=== PATIENT | female | born 1975 | race Caucasian/White ===

== ENCOUNTER 2023-02-20 22:13 | Observation (INO) | payer OTHER, SELFPAY ==
[2023-02-20] VITALS (8 sets, daily range): BP systolic 132–144; BP diastolic 74–86; PULSE 76–85; RESP 13–20; TEMP 36.4–36.6; O2SAT 95–99
--- NOTE | ~2023-02-20 | XR_ITS ---
Clinical Indication: Chest pain PA and lateral views of the chest: Comparison: None Findings: The lungs are clear, without evidence of focal consolidation or pleural effusion. Cardiome diastinal silhouette is within normal limits. Small hiatal hernia present. Osseous structures are int act. Impression: Clear lungs. Small hiatal hernia. Reviewed, dictated and finalized at [facility]. Impression: Clear lungs. Small hiatal hernia.
--- NOTE | ~2023-02-20 | CT_ITS ---
Clinical Indication: Chest pain, possible food bolus CT Scan of the Chest with Contrast: Technique: Contiguous sections were acquired throughout the chest after intravenous administration of 100 cc of Omnipaque 350. Dose reduction technique was used on this scan by utilizing automated expos ure control and iterative reconstruction technique. The dose-length product (DLP) was 305.56 mGy-cm. Findings: There is no evidence of any significant mediastinal, hilar or axillary lymphadenopathy. No large cent ral pulmonary embolus seen. There is no evidence of aortic dissection or aneurysm. There is mild dila tation of the upper thoracic esophagus, with suggestion of possible impacted food bolus at the GE merrill ction region. There is no evidence of pleural or pericardial effusion. The lungs are clear. No pulmonary nodules or infiltrates are noted. Images through the upper abdomen reveal no abnormalities. Impression: Probable ingested food bolus at the GE junction with associated mild dilatation of the upper esophagu s. Consider endoscopy and/or esophagram for further evaluation. No other significant findings. Reviewed, dictated and finalized at location . Impression: Probable ingested food bolus at the GE junction with associated mild dilatation of the upper esophagus. Consider endoscopy and/or esophagram for further evalu ation. No other significant findings.
--- NOTE | 2023-02-20 22:14 | ECG_ITS ---
Measurements Intervals [place] Rate: 79 P: -11 TX: 142 QRS: 32 QRSD: 77 T: 37 QT: 352 QTc: 405 Interpretive Statements SINUS RHYTHM LOW QRS VOLTAGE IN PRECORDIAL LEADS BASELINE ARTIFACT- I, III, AVL BORDERLINE ECG NO PREVIOUS ECG AVAILABLE FOR COMPARISON Electronically Signed On 02-21-2023 6:37:17 CDT by Juan Ahuja D.O.
--- NOTE | 2023-02-20 23:00 | ED.CHESTPAIN ---
HPI - Chest Pain General Chief Complaint: Chest Pain <ANUPAM Marino Last Filed: 02/21/23 02:59> Stated Complaint: heartburn <ANUPAM Marino Last Filed: 02/21/23 02:59> Time Seen by Provider: 02/20/23 22:43 <ANUPAM Marino Last Filed: 02/21/23 02:59> History of Present Illness HPI narrative: 47-year-old female with a history of asthma reports for evaluation of substernal chest pain that started at 1300 after she was eating pork steak. Patient states while eating for steak, she began having a burning sensation in her chest extending from her neck down to her xiphoid process. States the pain radiates to her upper mid back. She reports taking Rolaids without improvement. She reports vomiting approximately 20 times since the onset of symptoms without relief. Patient is also reporting shortness of breath, however she states this is her baseline secondary to asthma. She denies hematemesis, coffee-ground emesis, abdominal pain, fever, diarrhea, focal numbness or weakness, headache or vision changes. <ANUPAM Marino Last Filed: 02/21/23 02:59> Related Data Home Medications: Home Medications Medication Instructions Recorded Confirmed albuterol sulfate 90 mcg/actuation 2 puff inhalation Q6H PRN 02/20/23 02/21/23 aerosol inhaler Shortness Of Breath <ANUPAM Marino Last Filed: 02/21/23 02:59> Allergies/Adverse Reactions: Allergies Allergy/AdvReac Type Severity Reaction Status Date / Time No Known Allergies Allergy Verified 02/20/23 22:13 <ANUPAM Marino Last Filed: 02/21/23 02:59> Review of Systems Review of Systems: CONSTITUTIONAL: Denies fever, chills EYES: Denies visual changes, redness, or discharge. ENT: Denies rhinorrhea, congestion, sore throat, or otalgia. CARDIOVASCULAR: See HPI RESPIRATORY: Denies cough or dyspnea. GASTROINTESTINAL: See HPI GENITOURINARY: Denies dysuria or hematuria. SKIN: Denies rash or itching. MUSCULOSKELETAL: See HPI NEUROLOGIC: Denies headache, numbness, dizziness, or weakness. PSYCHIATRIC: Denies anxiety or depression. <Rose Finney PA-C - Last Filed: 02/21/23 02:59> [facility] Social History Social History: Social History Smoking status: Never smoker Alcohol intake: never Substance use: never Lack of Transportation: No Lack of Food: Never True Current Housing: I Have Housing Concerned About Future Housing: No Difficulty Paying Gas/Electric Bills: No Difficulty Paying for Meds: No Currently Unemployed: No Education: High School Diploma/GED Difficulty w/ Childcare or Family Care: No Spiritual care concerns: No <Rose Finney PA-C - Last Filed: 02/21/23 02:59> Exam Narrative: GENERAL: Well-appearing. Patient looks uncomfortable. No drooling or respiratory distress. HEAD: Normocephalic EYES: PERRLA ENT: Nares clear. Mucous membranes moist. Oropharynx without tonsillar hypertrophy exudate or other lesions. Mild erythema to posterior pharynx. NECK: Supple. CHEST: No respiratory distress. Clear to auscultation, no adventitious breath sounds. Tenderness to palpation over the sternum. HEART: Regular rate and rhythm. No murmur heard. Normal peripheral pulses. ABDOMEN: Soft, nontender, normal active bowel sounds. EXTREMITIES: Normal range of motion. No edema. SKIN: Warm, dry, no rash. NEURO: No focal deficits. Alert and oriented x3. PSYCH: Normal mood and affect. <Rose Finney PA-C - Last Filed: 02/21/23 02:59> Course DIRECTOR OF CONSULTING SERVICES/PA Physician Supervision I personally evaluated and examined the patient in conjunction with the APC (YUE Finney) and agree with the assessment, treatment plan and disposition of the patient as recorded by the APC. <Omar Bland MD - Last Filed: 02/21/23 03:23> Vital Signs Vital signs: Vital Signs Temperature 97.6 F 02/20/23
[2023-02-20 23:09] LABS: Basophils Percent Auto 0.3 % (0.2-1.2); Eosinophils Percent Auto 0.1 % (0-4.4); Hematocrit 39.7 % (37.0-47.0); Hemoglobin 13.3 g/dL (12.0-15.0); Immature Granulocyte Absolute 0.03 K/mm3 (0.00-0.031); Immature Granulocyte Percent A 0.3 % (0-0.5); Lymphocytes Absolute Auto 0.86 K/mm3 (0.9-3.2); Lymphocytes Percent Auto 7.9 % (18.3-44.2); Mean Corpuscular HGB Conc 33.5 g/dl (32-36); Mean Corpuscular Hemoglobin 30.6 pg (26-34); Mean Corpuscular Volume 91.5 fl (80-100); Mean Platelet Volume 9.5 fl (7.4-10.4); Monocytes Absolute Auto 0.5 K/mm3 (0.1-0.6); Neutrophils Absolute Auto 9.4 K/mm3 (1.3-6.7); Neutrophils Percent Auto 86.4 % (45.5-73.1); Platelet Count Result 332 k/mm3 (150-375); Red Blood Count 4.34 M/mm3 (4.2-5.4); Red Cell Distribution Width 14.1 % (11.5-14.5); White Blood Count 10.9 K/mm3 (4.5-10.0)
[2023-02-20 23:18] LABS: Alanine Aminotransferase 25 U/L (6-35); Albumin Level 4.9 g/dL (3.5-5.1); Alkaline Phosphatase 72 U/L (38-126); Anion Gap 11 mmol/L (8-16); Aspartate Amino Transferase 25 U/L (14-36); Bilirubin,Total 0.5 mg/dL (0.2-1.3); Blood Urea Nitrogen 17 mg/dL (7-17); Calcium 9.6 mg/dL (8.4-10.2); Carbon Dioxide 24 mmol/L (22-30); Chloride 106 mmol/L (98-107); Estimated CRCL calculation 152 ml/min; Estimated Glomerular Filt Rate > 60; Glucose 134 mg/dL (65-110); INR 0.9; Lipase 36 U/L (23-300); Potassium 3.5 mmol/L (3.4-5.0); Prothrombin Time 12.7 Seconds (11.1-14.7); Sodium 141 mmol/L (137-145)
[2023-02-20 23:19] LABS: Partial Thromboplastin Time 26.2 SECONDS (22.3-36.8)
[2023-02-20] MEDS: ONDANSETRON INJ 4 MG/2 ML VIAL IV PUSH (23:20)
[2023-02-20] MEDS: FAMOTIDINE 20 MG/2 ML VIAL IV PUSH (23:20)
[2023-02-20] MEDS: SODIUM CHLORIDE 0.9% IV 1,000 ML 999 ML IV CONT (23:20)
[2023-02-20 23:29] LABS: Troponin I < 0.012 ng/mL (0.000-0.034)
[2023-02-20 23:32] LABS: Strep Group A RT-PCR NOT DETECTED (Negative)
[2023-02-21] VITALS (18 sets, daily range): BP systolic 106–140; BP diastolic 52–88; PULSE 71–99; RESP 13–21; TEMP 36.4–36.7; O2SAT 97–100; BMI 34.4
[2023-02-21] MEDS: GLUCAGON FOR INJ 1 MG VIAL IV PUSH (00:34)
--- NOTE | 2023-02-21 02:29 | ADMGEN ---
This patient, Rachel Marti, was admitted to Medical Room 251-01. Patient/family oriented to hospital policies and general routines including ID bracelet, bed and alarms, visiting hours, pain management, procedures, bathroom and other care routines, personal items, smoking policy, room service/diet, and visiting hours. Information on how to activate the Rapid Response Team has been discussed. Patient/Family are encouraged to report perceived risks to care and to ask questions if they do not understand what they are told or what they should do.
--- NOTE | 2023-02-21 03:30 | PM.IMHP ---
H&P: HPI History of Present Illness Date/Time: 02/21/23 03:30 Chief Complaint: Chest discomfort after eating Narrative: 47-year-old female past medical history of asthma who presented to the ER with chest pain after eating. The patient was evidently eating some pork steak at around 13:00 when she started having some substernal chest discomfort. When she was during the 8 her 2nd bite of meat she was unable to swallow it as she began vomiting. It was accompanied by sensation of reflux. She took some Rolaids at home without improvement in her symptoms. The pain is burning sensation extending from her neck down to her xiphoid. It has been accompanied by numerous episodes of vomiting. Vomiting has not improve the symptoms. She denies any coffee-ground emesis, hematemesis or abdominal pain. She reports that in the past she has had episodes where she feels as if meets gotten stuck. She thought it was due to the meet having [place] seasoning on it. She states that usually when this happens she has been able to vomit the food back up. The patient received some Coca-Cola in the ER without improvement in her symptoms. She also received glucagon famotidine and a Liter of fluids. The patient did have some relief in her nausea after Zofran. She denies any symptoms of chronic GERD, reflux or sore throat. She has never had an EGD or evaluation for this issue before. She reports that she has not seen her primary care provider since 2019. She does not like her care provider much. She states that she is still using her rescue inhaler that she was prescribed a long time ago. She usually gets asthma symptoms once or twice a week in the spring and occasionally if she gets a virus during other times of the year. She has some chronic shortness of breath due to her asthma but denies any acute changes in this. She does not have a cough or significant shortness of breath currently. She did receive full-dose aspirin in the ER as part of the chest pain protocol but threw it up. She does snore but denies daytime fatigue. She reports that her weight is been stable. She has some chronic urinary frequency but no new urinary symptoms. She has been having normal bowel movements Review of Systems Review of Systems: 10 systems were reviewed with pertinent positives and negatives per HPI. Except as documented in the HPI, all other systems were reviewed and are negative. [facility] Past Medical History Medical History (Updated 02/21/23 @ 03:48 by Patrica Fowler DO) Obesity (BMI 30.0-34.9) Surgical History Surgical History (Updated 02/21/23 @ 03:48 by Patrica Fowler DO) History of surgery on upper extremity [place] placed in the head of the right humerus Family History Family History (Updated 02/21/23 @ 05:41 by Patrica Fowler DO) Father Unknown family medical history Mother Heart failure, Onset Age: 55 Sibling Hemorrhagic stroke, Onset Age: 30 Peripartum Social History Social History (Updated 02/21/23 @ 05:42 by Patrica Fowler DO) Social History: She lives at home with her of 25 years. They have 3 daughters ages 22, 20 and 18. There 18-year-old is getting ready to graduate from high school. She is a lifelong nonsmoker and does not use illicit substances. She rarely drinks alcohol and only in moderation. 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 Her sister had a stroke with intercranial bleed as a result of and she helps her with her mobility and activities of daily living. Code status: Full code Surrogate decision maker: Anthony () Smoking status: Never smoker Alcohol intake: never Substance use: never Lack of Transportation: No Lack of Food: Never True Current Housing: I Have Housing Concerned About Future Housing: No Difficulty Paying Gas/Electric Bills: No Difficulty Paying for Meds: No Currently Unemployed: No Education: High School Diploma/GED Diff
--- NOTE | 2023-02-21 06:58 | WPDGICN ---
Assessment and Plan Assessment and plan (1) Esophageal obstruction due to food impaction: Code(s): K22.2 - Esophageal obstruction; T18.128A - Food in esophagus causing other injury, initial encounter Status: Acute Assessment and Plan: she was eating pork steak yesterday when she felt something get caught. She has not been able to swallow anything since then. Attempts to dislodge the food bolus in the emergency room were not successful. Explained her that with endoscopy we are almost always able to remove were dislodged food. I explained her that there is significant risk in this case of bleeding and even the chance of perforation depending how difficult it is to extract the food bolus. (2) Atypical chest pain: Code(s): R07.89 - Other chest pain Status: Acute Assessment and Plan: EKG in the emergency room was normal. A CT scan of the chest did confirm that there was a food bolus at the GE junction. Troponin level was normal. (3) Dysphagia: Code(s): R13.10 - Dysphagia, unspecified Status: Acute Assessment and Plan: Intermittently she feels food getting hung up temporarily as she is eating but never has it felt like it got stuck for anything like this. In fact past few she can vomit back up whatever seems to be caught. She denies chronic heartburn. Plan EGD with possible biopsy or dilatation or cautery. GI Consult Note Consult date/time: 02/21/23 06:58 HPI: Rachel Marti is a 47 year old female who presents emergency room during the night because she felt that food was stuck in her chest. She had been eating pork steak at around noon yesterday when she felt discomfort. She took another bite and began vomiting. She has not been able to swallow anything since then. In the emergency room she was given trials of famotidine and glucagon without any relief. She states that in the past he intermittently would notice that meat Would get temporarily hung up but she is swallowing but usually she could regurgitate it. she has had no weight loss. She denies chronic heartburn. Her only medical problem is asthma for which she uses an inhaler Review of Systems Review of Systems: All systems reviewed & are unremarkable except as noted in HPI and below PMFSH Past Medical History Medical History Obesity (BMI 30.0-34.9) Surgical History Surgical History History of surgery on upper extremity [place] placed in the head of the right humerus Family History Family History Father Unknown family medical history Mother Heart failure, Onset Age: 55 Sibling Hemorrhagic stroke, Onset Age: 30 Peripartum Social History Social History Social History: She lives at home with her of 25 years. They have 3 daughters ages 22, 20 and 18. There 18-year-old is getting ready to graduate from high school. She is a lifelong nonsmoker and does not use illicit substances. She rarely drinks alcohol and only in moderation. 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 Her sister had a stroke with intercranial bleed as a result of and she helps her with her mobility and activities of daily living. Code status: Full code Surrogate decision maker: Anthony () Smoking status: Never smoker Alcohol intake: never Substance use: never Lack of Transportation: No Lack of Food: Never True Current Housing: I Have Housing Concerned About Future Housing: No Difficulty Paying Gas/Electric Bills: No Difficulty Paying for Meds: No Currently Unemployed: No Education: High School Diploma/GED Difficulty w/ Childcare or Family Care: No Spiritual care concerns: No Meds Home Medications and Allergies Home Medications
--- NOTE | 2023-02-21 07:00 | PC.NURSE ---
pt is off floor having procedure, will assess when she arrives back to room
[2023-02-21] MEDS: LACTATED RINGERS 1,000 ML 150 ML IV CONT (07:12)
--- NOTE | 2023-02-21 07:14 | WPDANESEPPF ---
Anes - Initial Pre Proc Eval Procedure: Operation Date: 02/21/23 14:00 Proposed Procedures p Esophagogastroduodenoscopy - Sebastian Kelsey MD Date/Time: 02/21/23 07:14 Surgeon: Patrica Fowler DO Pre Op Diagnosis: Food Bolus Patient Data Age: 47 Gender: F Height: 1.52 m Weight: 80 kg Last Vital Signs Temp 97.5 F L 02/21/23 07:10 Pulse 82 02/21/23 07:10 Resp 16 02/21/23 07:10 BP 140/76 02/21/23 07:10 Pulse Ox 100 02/21/23 07:10 O2 Del Method Room Air 02/21/23 07:10 Allergies Allergy/AdvReac Type Severity Reaction Status Date / Time No Known Allergies Allergy Verified 02/21/23 07:09 Home Medications Medication Instructions Recorded Confirmed Type albuterol sulfate 90 mcg/actuation 2 puff inhalation Q6H PRN 02/20/23 02/21/23 History aerosol inhaler Shortness Of Breath Laboratory Tests 02/20/23 02/20/23 23:01 23:03 WBC 10.9 H K/mm3 (4.5-10.0) RBC 4.34 M/mm3 (4.2-5.4) Hgb 13.3 g/dL (12.0-15.0) Hct 39.7 % (37.0-47.0) MCV 91.5 fl (80-100) MCH 30.6 pg (26-34) MCHC 33.5 g/dl (32-36) RDW 14.1 % (11.5-14.5) Plt Count 332 k/mm3 (150-375) MPV 9.5 fl (7.4-10.4) Immature Gran % (Auto) 0.3 % (0-0.5) Neut % (Auto) 86.4 H % (45.5-73.1) Lymph % (Auto) 7.9 L % (18.3-44.2) [place] % (Auto) 5.0 % (2.6-8.5) Eos % (Auto) 0.1 % (0-4.4) Baso % (Auto) 0.3 % (0.2-1.2) Lymph # (Auto) 0.86 L K/mm3 (0.9-3.2) [place] # (Auto) 0.5 K/mm3 (0.1-0.6) Eos # (Auto) 0.0 K/mm3 (0-0.3) Baso # (Auto) 0.0 K/mm3 (0.0-0.1) Abs Immat Gran (auto) 0.03 K/mm3 (0.00-0.031) Absolute Neuts (auto) 9.4 H K/mm3 (1.3-6.7) Absolute Nucleated RBC 0.0 K/mm3 (0.0-0.012) Nucleated RBC % 0.0 % (0.0-0.2) PT 12.7 Seconds (11.1-14.7) INR 0.9 APTT 26.2 SECONDS (22.3-36.8) Sodium 141 mmol/L (137-145) Potassium 3.5 mmol/L (3.4-5.0) Chloride 106 mmol/L (98-107) Carbon Dioxide 24 mmol/L (22-30) Anion Gap 11 mmol/L (8-16) BUN 17 mg/dL (7-17) Creatinine 0.40 L mg/dL (0.7-1.0) Estim Creat Clear Calc 152 ml/min Estimated GFR > 60 (59 - ) Glucose 134 H mg/dL (65-110) Calcium 9.6 mg/dL (8.4-10.2) Total Bilirubin 0.5 mg/dL (0.2-1.3) AST 25 U/L (14-36) ALT 25 U/L (6-35) Alkaline Phosphatase 72 U/L (38-126) Troponin I < 0.012 ng/mL (0.000-0.034) Total Protein 8.0 g/dL (6.3-8.2) Albumin 4.9 g/dL (3.5-5.1) Lipase 36 U/L (23-300) Group A Strep (PCR) Not detected (Negative) Patient hx anesthesia problems: none Family hx anesthesia problems: none Results Review: All pre-operative results and documents have been reviewed as part of the pre-operative evaluation. [facility] Past Medical History Medical History Obesity (BMI 30.0-34.9) Surgical History Surgical History History of surgery on upper extremity [place] placed in the head of the right humerus Family History Family History Father Unknown family medical history Mother Heart failure, Onset Age: 55 Sibling Hemorrhagic stroke, Onset Age: 30 Peripartum Social History Social History Social History: She lives at home with her of 25 years. They have 3 daughters ages 22, 20 and 18. There 18-year-old is getting ready to graduate from high school. She is a lifelong nonsmoker and does not use illicit substances. She rarely drinks alcohol and only in moderation. 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 Her sister had a stroke with inte
--- NOTE | 2023-02-21 08:08 | PC.NURSE ---
pt returned to floor, reviewed plan of care
[2023-02-21] MEDS: FAMOTIDINE 20 MG/2 ML VIAL IV PUSH (09:28)
--- NOTE | 2023-02-21 12:22 | PM.DS ---
DS: Admitting Diagnosis Discharge Date 02/21/2023 Admitting Diagnosis esophageal obstruction due to food impaction DS: Discharge Diagnosis Discharge Diagnosis (1) Esophageal obstruction due to food impaction: Code(s): K22.2 - Esophageal obstruction; T18.128A - Food in esophagus causing other injury, initial encounter Status: Acute (2) Nausea and vomiting: Qualifiers: Vomiting type: unspecified Qualified Code(s): R11.2 - Nausea with vomiting, unspecified Code(s): R11.2 - Nausea with vomiting, unspecified Status: Acute DS: Summary Hospital Course Hospital Course: date of admission: 02/20/2023 date of discharge: 02/21/2023 Rachel Marti is a 47-year-old female who presented to the emergency department on 02/20/2023 with complaints of substernal chest pain after eating a pork steak. She subsequently developed a burning sensation with nausea and episodes of emesis. On presentation to the ED, her vital signs were stable, she was afebrile, laboratory workup unremarkable including negative troponin, CT scan of the chest revealed small hiatal hernia with 2.4 cm food bolus near the GE junction. she was admitted to the hospitalist service for further evaluation and management was seen in consultation by Gastroenterology. She underwent EGD on 02/21/2023 in which the meat bolus was visualized and removed. Also evident was reflux esophagitis. Patient will begin pantoprazole 40 mg b.i.d.. Instructed to maintain a liquid diet for the remainder of the day and transition to soft diet tomorrow. She will need repeat EGD in 4 weeks to assess for healing. She will follow-up with GI as an outpatient and will continue to follow-up with her PCP for further monitoring. She is feeling improved, back to her usual state of health and was determined to no longer require inpatient care. She was discharged in hemodynamically stable condition on 02/21/2023. Time Spent with Patient Time attestation: Total time spent providing and/or coordinating discharge services: 35 minutes Time spent: Greater than 30 minutes Exam Narrative: General: Well-nourished, well-appearing 47-year-old female, sitting up in bed, comfortable, NARD Neuro: awake, alert and oriented x4, speech clear, no focal neuro deficits noted HEENMT: normocephalic, atraumatic, EOMI, sclerae anicteric= Respiratory: clear to auscultation bilaterally, nonlabored breathing Cardio: regular rate, regular rhythm with S1-S2 Abdomen: nondistended, normoactive bowel sounds, soft, nontender to palpation Extremities: no edema, erythema, or tenderness to palpation Skin: no rashes or lesions, warm and dry Psych: appropriate mood and affect, judgment and insight intact DS: Data Data Completed and Pending Labs on day of discharge: Labs from last 24 hours 02/20/23 02/20/23 23:03 23:01 WBC 10.9 H RBC 4.34 Hgb 13.3 Hct 39.7 MCV 91.5 MCH 30.6 MCHC 33.5 RDW 14.1 Plt Count 332 MPV 9.5 Immature Gran % (Auto) 0.3 Neut % (Auto) 86.4 H Lymph % (Auto) 7.9 L [place] % (Auto) 5.0 Eos % (Auto) 0.1 Baso % (Auto) 0.3 Lymph # (Auto) 0.86 L [place] # (Auto) 0.5 Eos # (Auto) 0.0 Baso # (Auto) 0.0 Abs Immat Gran (auto) 0.03 Absolute Neuts (auto) 9.4 H Absolute Nucleated RBC 0.0 Nucleated RBC % 0.0 PT 12.7 INR 0.9 APTT 26.2 Sodium 141 Potassium 3.5 Chloride 106 Carbon Dioxide 24 Anion Gap 11 BUN 17 Creatinine 0.40 L Estim Creat Clear Calc 152 Estimated GFR > 60 Glucose 134 H Calcium 9.6 Total Bilirubin 0.5 AST 25 ALT 25 Alkaline Phosphatase 72 Troponin I < 0.012 Total Protein 8.0 Albumin 4.9 Lipase 36 Group A Strep (PCR) Not detected Imaging Radiologist's impression: ITS Impressions Chest X-Ray 02/21/23 05:53 Impression: Clear lungs. Small hiatal hernia. Chest CT 02/21/23 06:01 Impression: Probable ingested food bolus at t
--- NOTE | 2023-02-21 12:59 | PCCCNOTE ---
On 02/21/23, the student, [Ana Paula Wan ], provided care and completed [facility] documentation on this patient. I have reviewed the student's documentation and agree with the findings.
== END 2023-02-21 12:55 | disposition home or self-care (01) ==
LOC: ANHED 23:06 → ANH2MED 02-21 03:22
PROVIDERS: Internal Medicine Gastroenterology; Preventive Medicine Aerospace Medicine; Admitting Provider Internal Medicine; Emergency Provider Physician Assistant; Visit Provider Physician Assistant
PROC: 0DJ08ZZ Inspection of Upper Intestinal Tract, Via Natural or Artificial Opening Endoscopic (ICD-10-PCS; CPT 43235; principal; 2023-02-21 14:00)
DX: K22.2 Esophageal obstruction (principal); T18.128A Food in esophagus causing other injury, initial encounter; K21.00 Gastro-esophageal reflux disease with esophagitis, without bleeding; K44.9 Diaphragmatic hernia without obstruction or gangrene; R11.2 Nausea with vomiting, unspecified; R13.10 Dysphagia, unspecified; R07.89 Other chest pain; J45.909 Unspecified asthma, uncomplicated; R35.0 Frequency of micturition; F10.90 Alcohol use, unspecified, uncomplicated; Z79.51 Long term (current) use of inhaled steroids
CPT/HCPCS: 43247; 36415; 71046; 71260; 80053; 83690; 84484; 85025; 85610; 85730; 87651; 93005; 96361; 96374; 96375; 99285; G0378; G0379; J1610; J2405; J2704; J7030; J7120; Q9967